=== PATIENT | female | born 1990 | race Caucasian/White ===

== ENCOUNTER 2018-05-23 21:03 | Emergency (ER) | payer OTHER ==
--- NOTE | 2018-05-23 21:31 | ED ---
Lower Extremity - HPI Summary HPI Summary: Patient is a 27-year-old female who presents emergency department for right foot injury that occurred just prior to arrival. Patient states she is in the process of moving and went to flip a couch over when it suddenly fell and landed onto her right foot. No other injuries were sustained. Walking and touching affected area makes symptoms worse. Rest makes symptoms better. Symptoms are mild in severity. - History of Current Complaint Chief Complaint: EDExtremityLower Stated Complaint: RT FOOT INJURY Time Seen by Provider: 05/23/18 21:31 Hx Obtained From: Patient Pain Intensity: 6 - Allergies/Home Medications Allergies/Adverse Reactions: Allergies Allergy/AdvReac Type Severity Reaction Status Date / Time amoxicillin Allergy Hives Verified 05/23/18 21:17 Penicillins Allergy Hives Verified 05/23/18 21:17 Sulfa (Sulfonamide Allergy Hives Verified 05/23/18 21:17 Antibiotics) PMH/Surg Hx/FS Hx/Imm Hx Previously Healthy: Yes Endocrine/Hematology History: Denies: Hx Diabetes Cardiovascular History: Denies: Hx Hypertension, Hx Pacemaker/ICD Respiratory History: Reports: Hx Sleep Apnea GI History: Reports: Hx Gastroesophageal Reflux Disease, Hx Ulcer History: Denies: Hx Renal Disease Musculoskeletal History: Reports: Hx Back Problems, Hx Orthopedic Injury, Other Musculoskeletal History - EDS, connective tissue disorder, hypermobility; Bilateral Shoulder Pain Sensory History: Reports: Hx Contacts or Glasses Denies: Hx Hearing Aid Opthamlomology History: Reports: Hx Contacts or Glasses Neurological History: Reports: Hx Headaches, Other Neuro Impairments/Disorders - dizziness Psychiatric History: Denies: Hx Panic Disorder - Surgical History Surgery Procedure, Year, and Place: REMOVED CYST ON NECK 7TH GRADE. LAPROSCOPIC LEFT HIP SURGERY 2014 Infectious Disease History: No Infectious Disease History: Denies: Traveled Outside the [place] in Last 30 Days - Social History Occupation: Unemployed Lives: With Family Alcohol Use: Occasionally Substance Use Type: Reports: None Smoking Status (MU): Never Smoked Tobacco Review of Systems Positive: Other - Right foot pain and swelling Positive: Other - Abrasion to right foot Negative: Weakness, Paresthesia, Numbness All Other Systems Reviewed And Are Negative: Yes Physical Exam Triage Information Reviewed: Yes Vital Signs On Initial Exam: Initial Vitals Temp Pulse Resp BP Pulse Ox 98.1 F 78 18 126/69 98 05/23/18 21:14 05/23/18 21:14 05/23/18 21:14 05/23/18 21:14 05/23/18 21:14 Vital Signs Reviewed: Yes Appearance: Positive: Well-Appearing - Pt. sitting up in bed in NAD. Skin: Positive: Warm, Dry Head/Face: Positive: Normal Head/Face Inspection Neck: Positive: Supple Musculoskeletal: Positive: Other - Hematoma noted to the mid dorsum of right foot. Very small superficial overlying abrasion. Neurological: Positive: Normal, CN Intact II-III Psychiatric: Positive: Affect/Mood Appropriate Diagnostics - Vital Signs Vital Signs Temp Pulse Resp BP Pulse Ox 05/23/18 21:14 98.1 F 78 18 126/69 98 - Laboratory Lab Statement: Any lab studies that have been ordered have been reviewed, and results considered in the medical decision making process. Lower Extremity Course/Dx - Course Course Of Treatment: Pt. presenting for an isolated right foot injury. Xray of right foot is negative for fracture or dislocation, reading per radiology. Results discussed. Jerod wrap placed for comfort. Advised to ice and elevate. Tylenol or Motrin for pain as directed. Will f.u with PCP. - Diagnoses Differential Diagnosis/HQI/PQRI: Positive: Contusion, Fracture (Closed), Sprain Provider Diagnoses: Foot contusion Discharge - Sign-Out/Discharge Documenting (check all that apply): Discharge/Admit/Transfer - Discharge Plan Condition: Good Disposition: HOME Patient Education Materials: Foot Contusion (ED) Referrals: Kendall Lowery MD [Primary Care Provider] - Additional Instructions: Follow up with PCP if pain and swelling continues Ice and elevate Tylenol or Motrin for pain as directed - Billing Disposition and Condition Condition: GOOD Disposition: Home
--- NOTE | 2018-05-23 21:52 | RAD ---
INDICATION: Right foot pain COMPARISON: None TECHNIQUE: AP, lateral, and oblique views were obtained. FINDINGS: There is no acute fracture or dislocation. There is soft tissue swelling over the dorsum of the midfoot. IMPRESSION: SOFT TISSUE SWELLING. NO ACUTE FRACTURE.
[2018-05-23 22:23] VITALS: BP 101/67
== END 2018-05-23 22:21 | disposition home or self-care (01) ==
LOC: ED 21:03
DX: S90.31XA Contusion of right foot, initial encounter (principal); W20.8XXA Other cause of strike by thrown, projected or falling object, initial encounter; Y93.89 Activity, other specified; Y92.9 Unspecified place or not applicable; Z88.3 Allergy status to other anti-infective agents; Z88.0 Allergy status to penicillin; Z88.2 Allergy status to sulfonamides
CPT/HCPCS: 99282

== ENCOUNTER 2018-11-27 15:14 | Emergency (ER) | payer OTHER ==
[2018-11-27] MEDS ORDERED: oxyCODONE/Acetamin 5/325 MG* TAB PO ONE ×3 (15:36→17:38)
--- NOTE | 2018-11-27 15:46 | ED ---
Back Pain - HPI Summary HPI Summary: This patient is a 28 year old F presenting to [facility] accompanied by her family with a chief complaint of lower back pain that was worse over this afternoon. She states she has been having this pain since August and that over the last week it has been increasing. She did see Dr. Aponte in August and received an MRI that was negative and was told to f/u with her PCP. The patient rates the pain 9/10 in severity. She describes the pain as a cramping sensation in her back that radiates into her ovaries. Patient reports ABD bloating, lower back pain with urination, and chills. Patient denies hematuria, BM issues, fever, and diaphoresis. Pt also c/o nerve pain down her legs that began 3 days ago but states this is being followed up with a different provider. She does have an IUD in place. Hx ruptured cyst and irregular periods. 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 She denies recent steroid use - History of Current Complaint Chief Complaint: EDBackInjuryPain Stated Complaint: BACK PAIN Time Seen by Provider: 11/27/18 15:26 Hx Obtained From: Patient Onset/Duration: Still Present, Worse Since Onset/Duration: Started Hours Ago, Still Present Timing: Constant Back Pain Location: Is Diffuse Severity Initially: Severe Severity Currently: Severe Pain Intensity: 9 Pain Scale Used: 0-10 Numeric Associated Signs And Symptoms: Positive: Other - ABD bloating, lower back pain with urination, and chills. - Allergies/Home Medications Allergies/Adverse Reactions: Allergies Allergy/AdvReac Type Severity Reaction Status Date / Time amoxicillin Allergy Hives Verified 11/27/18 16:15 Penicillins Allergy Hives Verified 11/27/18 16:15 sulfamethoxazole Allergy Hives Verified 11/27/18 16:15 [From Bactrim] trimethoprim [From Bactrim] Allergy Hives Verified 11/27/18 16:15 Home Medications: Home Medications Cholecalciferol (Vitamin D3) [Vitamin D3] 1,000 unit PO DAILY 11/27/18 [History Confirmed 11/27/18] Montelukast Sodium TAB* [Singulair TAB*] 10 mg PO DAILY 11/27/18 [History Confirmed 11/27/18] Triamcinolone NASAL SPRAY* [Nasacort AQ Nasal [place]*] 1 puff NASAL BID 11/27/18 [History Confirmed 11/27/18] PMH/Surg Hx/FS Hx/Imm Hx Endocrine/Hematology History: Denies: Hx Diabetes Cardiovascular History: Denies: Hx Hypertension, Hx Pacemaker/ICD Respiratory History: Reports: Hx Sleep Apnea GI History: Reports: Hx Gastroesophageal Reflux Disease, Hx Ulcer History: Denies: Hx Renal Disease Musculoskeletal History: Reports: Hx Back Problems, Hx Orthopedic Injury, Other Musculoskeletal History - EDS, connective tissue disorder, hypermobility; Bilateral Shoulder Pain Sensory History: Reports: Hx Contacts or Glasses Denies: Hx Hearing Aid Opthamlomology History: Reports: Hx Contacts or Glasses Neurological History: Reports: Hx Headaches, Other Neuro Impairments/Disorders - dizziness Psychiatric History: Denies: Hx Panic Disorder - Surgical History Surgery Procedure, Year, and Place: REMOVED CYST ON NECK 7TH GRADE. LAPROSCOPIC LEFT HIP SURGERY 2014. WISDOM TEETH 2017 Infectious Disease History: No Infectious Disease History: Denies: Traveled Outside the [place] in Last 30 Days - Family History Known Family History: Negative: Respiratory Disease, Seizure Disorder - Social History Alcohol Use: Occasionally Alcohol Amount: 4 drinks per month Substance Use Type: Reports: None Smoking Status (MU): Never Smoked Tobacco Review of Systems Positive: Chills. Negative: Fever, Skin Diaphoresis Negative: Erythema Negative: Sore Throat Negative: Chest Pain Negative: Shortness Of Breath, Cough Positive: Abdominal Pain Negative: dysuria, hematuria Musculoskeletal: Other - lower back pain that is worse with urination Negative: Edema Negative: Rash Neurological: Negative - dizziness Positive: Paresthesia - in LE All Other Systems Reviewed And Are Negative: Yes Physical Exam - Summary Physical Exam Summary: Constitutional: Well-developed, Well-nourished, Alert. (-) Distressed Skin: Warm, Dry HENT: Normocephalic; Atraumatic Eyes: Conjunctiva normal Neck: Musculoskeletal ROM normal neck. (-) JVD, (-) Stridor, (-) Tracheal deviation Cardio: Rhythm regular, rate normal, Heart sounds normal; Intact distal pulses; The pedal pulses are 2+ and symmetric. Radial pulses are 2+ and symmetric. (-) Murmur Pulmonary/Chest wall: Effort normal. (-) Respiratory distress, (-) Wheezes, (-) Rales Abd: she winces when her lower abd is palpated. Musculoskeletal: (-) Edema Lymph: (-) Cervical adenopathy Neuro: Alert, Oriented x3 Psych: Mood and affect Normal Triage Information Reviewed: Yes Vital Signs On Initial Exam: Initial Vitals Temp Pulse Resp BP Pulse Ox 96.0 F 72 16 106/61 100 11/27/18 15:15 11/27/18 15:15 11/27/18 15:15 11/27/18 15:15 11/27/18 15:15 Vital Signs Reviewed: Yes Diagnostics - Vital Signs Vital Signs Temp Pulse Resp BP Pulse Ox 11/27/18 15:15 96.0 F 72 16 106/61 100 - Laboratory Result Diagrams: 11/27/18 16:28 11/27/18 16:28 Lab Statement: Any lab studies that have been ordered have been reviewed, and results considered in the medical decision making process. - Radiology ABD [facility]' Radiology Interpretation Completed By: Radiologist Summary of Radiographic Findings: NONOBSTRUCTIVE BOWEL GAS PATTERN. LARGE AMOUNT OF STOOL THROUGHOUT THE COLON. ED physician has reviewed this radiology report. - Additional Comments Diagnostic Additional Comments: Transvaginal US, reveals, per radiology, 1. AN IUD IS NOTED CENTRALLY WITHIN THE ENDOMETRIAL CAVITY TOWARDS THE FUNDUS.. 2. 1.8 CM HEMORRHAGIC CYST OF THE RIGHT OVARY. 3. NO SONOGRAPHIC FEATURES OF TORSION. PLEASE NOTE THAT PARTIAL OR INTERMITTENT TORSION MAY BE SONOGRAPHICALLY NORMAL. ED physician has reviewed this radiology report. Re-Evaluation - Re-Evaluation First Eval Re-Evaluation Time: 16:44 Change: Worse Comment: The pain has increased with the transvaginal US. She also states the first percocet did not alleviate any pain. Back Pain Course/Dx - Course Assessment/Plan: This patient is a 28 year old F presenting to [facility] accompanied by her family with a chief complaint of lower back pain that was worse over this afternoon. She states she has been having this pain since August and that over the last week it has been increasing. She did see Dr. Aponte in August and received an MRI that was negative and was told to f/u with her PCP. The patient rates the pain 9/10 in severity. She describes the pain as a cramping sensation in her back that radiates into her ovaries. Patient reports ABD bloating, lower back pain with urination, and chills. Patient denies hematuria, BM issues, fever, and diaphoresis. Pt also c/o nerve pain down her legs that began 3 days ago but states this is being followed up with a different provider. She does have an IUD in place. Hx ruptured cyst and irregular periods. 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 She denies recent steroid use. ABD XR reveals, per radiologist, NONOBSTRUCTIVE BOWEL GAS PATTERN. LARGE AMOUNT OF STOOL THROUGHOUT THE COLON. Transvaginal US, reveals, per radiology, 1. AN IUD IS NOTED CENTRALLY WITHIN THE ENDOMETRIAL CAVITY TOWARDS THE FUNDUS.. 2. 1.8 CM HEMORRHAGIC CYST OF THE RIGHT OVARY. 3. NO SONOGRAPHIC FEATURES OF TORSION. PLEASE NOTE THAT PARTIAL OR INTERMITTENT TORSION. MAY BE SONOGRAPHICALLY NORMAL. Bloodwork obtained. In the ED course the patient was given 3 Percocet which alleviated her sx. Patient will be discharged and follow up from [facility]. The patient is agreeable with this plan. - Diagnoses Provider Diagnoses: Constipation, Hemorrhagic ovarian cyst Discharge - Sign-Out/Discharge Documenting (check all that apply): Patient Departure - Discharge Plan Condition: Stable Disposition: HOME Prescriptions: Docusate CAP* [Colace Cap*] 100 mg PO BID #60 cap Patient Education Materials: Ovarian Cyst (ED), Constipation (ED), High Fiber Diet (ED) Referrals: Kendall Lowery MD [Primary Care Provider] - 3 Days Joey Ferrara MD [Medical Doctor] - 1 Day Additional Instructions: RETURN TO THE EMERGENCY DEPARTMENT FOR CHANGING OR WORSENING SYMPTOMS. - Attestation Statements Document Initiated by Scribe: Yes Documenting Scribe: Bhaskar Edgar Provider For Whom Scribe is Documenting (Include Credential): Yrn Soler MD Scribe Attestation: Bhaskar Rudolph , scribed for Yrn Soler MD on 11/27/18 at 1753. Status of Scribe Document: Ready
[2018-11-27 16:38] LABS: ABS Basophils 0.1 10^3/ul (0-0.2); ABS Eosinophils 0.3 10^3/ul (0-0.6); ABS Lymphocytes 2.2 10^3/ul (1.0-4.8); ABS Monocytes 0.5 10^3/ul (0-0.8); ABS Neutrophils 4.1 10^3/ul (1.5-7.7); ABS Nucleated RBC 0 10^3/ul; Eosinophil % 3.9 %; Hematocrit 39 % (35-47); Lymphocyte % 30.5 %; Mean Corpuscular HGB Conc 33 g/dl (31-36); Mean Corpuscular Hemoglobin 31 pg (27-31); Mean Corpuscular Volume 92 fL (80-97); Mean Platelet Volume 9.9 fL (7.4-10.4); Nucleated Red Blood Cells % 0; Platelet Count 157 10^3/ul (150-450); Red Blood Count 4.25 10^6/ul (4.00-5.40); Red Cell Distribution Width 13 % (10.5-15); White Blood Count 7.1 10^3/ul (3.5-10.8)
[2018-11-27 16:55] LABS: ALT 20 U/L (7-52); AST 25 U/L (13-39); Albumin 4.5 g/dL (3.2-5.2); Albumin/Globulin Ratio 1.7 (1-3); Alkaline Phosphatase 45 U/L (34-104); Anion Gap 4 mmol/L (2-11); Blood Urea Nitrogen 23 mg/dL (6-24); C Reactive Protein < 1.00 mg/L (<8.01); CO2 Carbon Dioxide 29 mmol/L (22-32); Calcium 9.1 mg/dL (8.6-10.3); Chloride 104 mmol/L (101-111); EGFR Non-African American 81.9 (>60); Globulin 2.6 g/dL (2-4); Glucose 113 mg/dL (70-100); Potassium 3.9 mmol/L (3.5-5.0); Sodium 137 mmol/L (135-145); Total Protein 7.1 g/dL (6.4-8.9)
[2018-11-27 17:29] LABS: Urine Appearance Cloudy; Urine Bilirubin Negative (Negative); Urine Blood Negative (Negative); Urine Color Straw; Urine Glucose Negative (Negative); Urine Ketones Negative (Negative); Urine Nitrite Negative (Negative); Urine Protein Negative (Negative); Urine Specific Gravity 1.004 (1.010-1.030); Urine Urobilinogen Negative (Negative)
[2018-11-27 18:14] VITALS: BP 95/54
== END 2018-11-27 18:13 | disposition home or self-care (01) ==
LOC: ED 15:14
DX: K59.00 Constipation, unspecified (principal); N83.201 Unspecified ovarian cyst, right side; G47.30 Sleep apnea, unspecified; K21.9 Gastro-esophageal reflux disease without esophagitis; Z88.0 Allergy status to penicillin; Z97.5 Presence of (intrauterine) contraceptive device
CPT/HCPCS: 36415; 74018; 76830; 80053; 81003; 83605; 83690; 85025; 86140; 99283; A9270-GY

== ENCOUNTER 2019-02-15 21:26 | Emergency (ER) | payer OTHER ==
--- OUTSIDE RECORDS SUMMARY | 2019-02-15 21:38 | XMS REPORT | Continuity of Care Document ---
:1990 External Reference #:[id number] Author Name Kendall Lowery M.D. Address [address] [place] [address] [address] [place] [address] Care Team Providers Name Role Phone HCP given Primary Care Physician Unavailable Payers Date Identification Numbers Payment Provider Subscriber Policy Number: [id number] [facility] Mariely Nielson PayID: [id number] [address] [place] [address] Advance Directives Description No Information Available Problems Date Description Provider Status Onset: 08/30/2016 Insomnia Marquita Metz PA Active Onset: 08/30/2016 Hypermobility syndrome Marquita Metz PA Active Onset: 08/30/2016 Allergic rhinitis Marquita Metz PA Active Onset: 11/01/2016 Collagen disease Marquita Metz, PA Active Onset: 11/01/2016 Verruca vulgaris Marquita Metz, PA Active Onset: 01/03/2017 Sleep apnea Marquita Metz, PA Active Onset: 02/07/2017 Recurrent major depressive episodes Marquita Metz PA Active Onset: 07/17/2018 Gastroesophageal reflux disease Marquita Metz, PA Active Family History Date Family Member(s) Observation Comments Father Diabetes, Nos Father Hypertension Father Hypercholesterolemia Father Narcolepsy Children 2 First Brother Crohn's Disease First Brother Ankylosing Spondylitis First Brother hypermobility First Sister hypermobility Second Sister Hypothyroidism Third Sister Scoliosis Paternal Grandmother Diabetes, Nos Paternal Grandmother Dementia Paternal Grandmother Rheumatoid Arthritis Maternal Grandfather Pancreatic Cancer Maternal Grandmother Breast Cancer Maternal Grandmother Alzheimer's Disease Maternal Aunts Breast Cancer Social History Type Date Description Comments Sex Unknown Education Highest Level Completed College Marital Status Lives With Children Lives With Smoke-Free Home is smoke-free Work Status Not Currently Working Tobacco Use Start: Unknown Denies Cigarette Use ETOH Use Occassional Alcohol Recreational Drug Use Denies Drug Use Tobacco Use Start: Unknown Non Smoker Smoking Status Reviewed: 07/19/18 Non Smoker Exercise Type/Frequency Exercises rarely Sun Exposure Uses sunscreen Seat Belt/Car Seat Seat Belt Use - Yes Guns in Home No Smoke Alarms Yes smoke alarm Currently Active Patient is currently sexually active Contraceptive Methods IUD Mirena Age 1st Penrose 17 Years Old Allergies, Adverse Reactions, Alerts Date Description Reaction Status Severity Comments 08/30/2016 Penicillins Active 08/30/2016 Amoxicillin Active 08/30/2016 Bactrim Active Medications Medication Date Status Form Strength Qnty SIG Indications Ordering Provider Fexofenadine 02/05/ Active Tablets 180mg 30tab 1 tab by Silcoff, HCL 2019 s mouth every Kendall, day for M.D. allergies Oxycodone-Aceta 02/05/ Active Tablets 5-325mg 30tab 1 tab up to N83.209 Siltommy minophen 2019 s three times Kendall, daily as M.D. needed for pain Nasacort(OTC)Al 11/13/ Active Bigelow 10.8u Use 2 Sprays karissa Lowery 24HR 2018 nits In Each Kendall, Nostril One M.D. Time A Day Duloxetine HCL 07/17/ Active Caps DR 30mg 30cap 1 cap by F33.9 Silcoff, 2018 Part s mouth every Kendall, day for mood M.D. Gabapentin 07/16/ Active Capsules 100mg 7 Unknown 2017 capsules/beulah ly Meloxicam 07/16/ Active Tablets 1 by mouth Unknown 2018 twice daily Meclizine HCL 02/07/ Active Tablets 25mg 90tab 1 tab by H81.10 Silcoff, 2018 s mouth three Kendall, times a day M.D. as needed dizziness Montelukast 05/11/ Active Tablets 10mg 30tab 1 by mouth J30.9 Silcoff, Sodium 2017 s every day Kendall, for M.D. allergies Pantoprazole 07/20/ Active Tablets DR 40mg 60tab 1 by mouth K21.9 Silcoff, Sodium 2016 s twice a day Kendall, 30 minutes M.D. before eating Centrum Adults / Active Tablets Unknown 0000 Dok 01/03/ Hx Capsules 100mg 60cap Take 1 Unknown 2019 - s Capsule By 12/30/ Mouth Two 2019 Times Daily Azithromycin 08/13/ Hx Tablets 250mg 6tabs 2 tabs day H65.92 Sebastián 2018 - one and 1 Kendall, 08/20/ tab days 2-5 M.D. 2018 Benzonatate 08/13/ Hx Capsules 200mg 14cap 1 cap up to R05 Sebastián, 2018 - s three times Kendall, 09/12/ a day for M.D. 2018 cough, when no longer productive Escitalopram 04/16/ Hx Tablets 20mg 30tab 1 tab by F33.9 Sebastián, Oxalate 2018 - s mouth every Kendall, 05/17/ day M.D. 2018 Cefdinir 10/21/ Hx Capsules 300mg 20cap 1 cap by J01.90 Sebastián 2016 - s mouth twice Kendall, 10/31/ a day M.D. 2016 Guaifenesin ac 10/21/ Hx Syrup 100-10mg/ 200un 5-10 R05 Sebastián, 2017 - 5ML its milliliters Kendall, 11/21/ every 6 M.D. 2017 hours for cough Ventolin HFA 10/09/ Hx Aerosol 108(90Bas 1inha 1-2 puff q4 J20.9 Sebastián, 2016 - e) ler hours for Kendall, 11/20/ mcg/Act breathing M.D. 2017 Prednisone 10/09/ Hx Tablets 20mg 5tabs 1 per J20.9 Sebastián, 2016 - morning x 5 Kendall, 10/19/ days for M.D. 2017 bronchitis Azithromycin 08/30/ Hx Tablets 250mg 6tabs 2 tabs by J20.9 Sebastián, 2017 - mouth daily Kendall, 09/04/ x1 day then M.D. 2017 1 tab by mouth daily x4 days Cetirizine HCL 05/31/ Hx Tablets 10mg 30tab take 1 Sebastián 2016 - s tablet by Kendall, 02/05/ mouth every M.D. 2019 day for allergy Freestyle Lite 05/11/ Hx Device 1unit test three R73.01 Hektor, Blood Glucose 2017 - s times a day GRAHAM Juárez Monitoring 02/04/ as directed System 2019 Freestyle Lite 05/11/ Hx Strips 100un test 3 times R73.01 Sebastián, Test 2017 - its a day as Kendall, 02/04/ directed M.DZohaib 2018 Freestyle 05/11/ Hx Misc 100un test three R73.01 Debby Lowery 2017 - its time daily Kendall, as directed M.DZohaib 2018 Citalopram 05/11/ Hx Tablets 40mg 90tab 1 tab by F33.9 Lashay Hydrobromide 2017 - s mouth every GRAHAM Juárez 2017 Tramadol HCL 04/19/ Hx Tablets 50mg [place], 2017 - Robert, 08/29/ 2016 Hydrocodone-Jerod 03/14/ Hx Tablets 5-325mg 90tab 1 tablet by M25.512 debora Metz 2016 - s mouth up to GRAHAM Juárez 05/08/ every 8 2016 hours as needed for pain Trazodone HCL 03/07/ Hx Tablets 100mg 1 tabs by Lashay 2017 - mouth every GRAHAM Juárez 05/08/ night at 2016 bedtime as needed for insomnia Hydrocodone-Ibu 03/07/ Hx Tablets 5-200mg 90tab 1 tab po M25.512 rené Metz 2016 - s every GRAHAM Juárez 03/14/ hours as 2016 needed for pain Escitalopram 03/07/ Hx Tablets 20mg 30tab 1 tab by F33.9 Lashay Oxalate 2016 - s mouth every GRAHAM Juárez day 2016 Escitalopram 02/07/ Hx Tablets 10mg 30tab 1 by mouth F33.9 Lashay Oxalate 2016 - s every day GRAHAM Juárez 2016 Cefdinir 02/07/ Hx Capsules 300mg 20cap 1 cap by J01.90 Lashay 2017 - s mouth twice GRAHAM Juárez 03/06/ a day x10 2016 days Amitriptyline 01/17/ Hx Tablets 25mg 30tab 1 tab po at G47.00 ARTHUR Metz 2016 - s bedtime for GRAHAM Juárez 02/06/ sleep 2016 Trazodone HCL 10/26/ Hx Tablets 100mg 30tab 1 tab by G47.00 Lashay 2015 - s mouth every GRAHAM Juárez 10/28/ night at 2015 bedtime as needed Trazodone HCL 08/30/ Hx Tablets 50mg 30tab take 1 G47.00 Lashay 2015 tablet by GRAHAM Juárez 10/26/ mouth daily 2015 at bedtime for trouble sleeping Nasacort 08/30/ Hx Aerosol 55mcg/Act 16.90 2 sprays J30.9 Silcoff, Allergy 24HR 2016 - 0ml each nostril Kendall 02/04/ daily M.D. 2018 Zyrtec Allergy 08/29/ Hx Capsules 10mg 30cap 1 tab a day Lashay 2015 - for allergy GRAHAM Juárez 2016 Ibuprofen 08/29/ Hx Tablets 200mg 90tab taking 2-3 Lashay 2015 tablets by GRAHAM Juárez 02/07/ mouth tid 2017 prn headache/flora nt pain Trazodone HCL / Hx Tablets 100mg 30tab 1 tabs by Lashay, - s mouth every GRAHAM Juárez 03/07/ night at 2016 bedtime for sleep Calcium 500 + D / Hx Tablets 500-125mg 1 by mouth Unknown 0000 - -Unit every day 2018 Vitamin D3 High / Hx Capsules 1000Unit 2-3 by mouth Unknown Potency 0000 - every day 2018 Immunizations CPT Code Status Date Vaccine Lot # [id number] Given 08/13/2018 Influenza Virus Vaccine, Quadrivalent, Split, [id number] Preservative Free Vital Signs Date Vital Result Comment 02/05/2019 11:14am BP Systolic 102 mmHg BP Diastolic 66 mmHg Height 65 inches 5'5" Weight 153.00 lb BMI (Body Mass Index) 25.5 kg/m2 10/31/2018 1:59pm BP Systolic 106 mmHg BP Diastolic 62 mmHg BP Systolic Recheck 104 mmHg BP Diastolic Recheck 76 mmHg Body Temperature 98.2 F Weight 154.00 lb 08/13/2018 3:28pm BP Systolic 106 mmHg BP Diastolic 70 mmHg Body Temperature 98.3 F Height 65 inches 5'5" Weight 154.50 lb BMI (Body Mass Index) 25.7 kg/m2 07/17/2018 4:24pm BP Systolic 114 mmHg BP Diastolic 68 mmHg Weight 158.50 lb 02/15/2018 2:42pm BP Systolic 116 mmHg BP Diastolic 72 mmHg Weight 148.50 lb 02/07/2018 9:05am BP Systolic 110 mmHg BP Diastolic 70 mmHg Height 65.50 inches 5'5.50" Weight 146.00 lb BMI (Body Mass Index) 23.9 kg/m2 10/21/2017 10:00am BP Systolic 124 mmHg BP Diastolic 80 mmHg Body Temperature 98.9 F 10/09/2017 11:46am BP Systolic 114 mmHg BP Diastolic 68 mmHg Heart Rate 68 /min O2 % BldC Oximetry 98 % Body Temperature 98.2 F Weight 145.00 lb w/shoes and sweatshirt 08/30/2017 4:43pm BP Systolic 126 mmHg BP Diastolic 70 mmHg Body Temperature 98.7 F Weight 143.00 lb 05/11/2017 4:16pm BP Systolic 110 mmHg BP Diastolic 72 mmHg Body Temperature 98.5 F 05/09/2017 3:24pm BP Systolic 104 mmHg BP Diastolic 60 mmHg Body Temperature 98.3 F Height 65.5 inches 5'5.50" Weight 137.00 lb BMI (Body Mass Index) 22.4 kg/m2 03/07/2017 4:31pm BP Systolic 98 mmHg BP Diastolic 62 mmHg Weight 140.00 lb 02/07/2017 10:30am BP Systolic 106 mmHg BP Diastolic 68 mmHg Body Temperature 98.0 F 01/17/2017 4:44pm BP Systolic 106 mmHg BP Diastolic 68 mmHg Weight 144.00 lb 11/01/2016 11:17am BP Systolic 110 mmHg BP Diastolic 70 mmHg Weight 141.00 lb with shoes 10/26/2016 2:55pm BP Systolic 98 mmHg BP Diastolic 60 mmHg Weight 142.00 lb 09/20/2016 3:40pm BP Systolic 104 mmHg BP Diastolic 60 mmHg Height 64.50 inches 5'4.50" Weight 142.00 lb BMI (Body Mass Index) 24.0 kg/m2 08/30/2016 5:04pm BP Systolic 110 mmHg BP Diastolic 70 mmHg Height 64.50 inches 5'4.50" Weight 139.00 lb BMI (Body Mass Index) 23.5 kg/m2 Results Test Date Facility Test Result H/L Range Note Urine Drug 12/04/2018 [facility] Amphetamine Ur None Detected None Detect [facility] ED & [phone] Screen Pain Clinic Barbiturates Urine Screen None Detected None Detect Benzodiazepine Urine Screen None Detected None Detect Urine Cannabinoids Screen None Detected None Detect Urine Cocaine Screen None Detected None Detect Urine Opiates Screen None Detected None Detect Urine Phencyclidine Screen None Detected None Detect 1 CBC Auto Diff 11/27/2018 [facility] White Blood Count 7.1 10^3/uL N 3.5-10.8 [phone] Red Blood Count 4.25 10^6/uL N 4.00-5.40 Hemoglobin 13.0 g/dL N 12.0-16.0 Hematocrit 39 % N 35-47 Mean Corpuscular Volume 92 fL N 80-97 Mean Corpuscular Hemoglobin 31 pg N 27-31 Mean Corpuscular HGB Conc 33 g/dL N 31-36 Red Cell Distribution Width 13 % N 10.5-15 Platelet Count 157 10^3/uL N 150-450 Mean Platelet Volume 9.9 fL N 7.4-10.4 Abs Neutrophils 4.1 10^3/uL N 1.5-7.7 Abs Lymphocytes 2.2 10^3/uL N 1.0-4.8 Abs Monocytes 0.5 10^3/uL N 0-0.8 Abs Eosinophils 0.3 10^3/uL N 0-0.6 Abs Basophils 0.1 10^3/uL N 0-0.2 Abs Nucleated RBC 0 10^3/uL Granulocyte % 58.0 % Lymphocyte % 30.5 % Monocyte % 6.9 % Eosinophil % 3.9 % Basophil % 0.7 % Nucleated Red Blood Cells % 0 Laboratory test finding 11/27/2018 [facility] Lactic Acid 1.2 mmol/L N 0.5-2.0 2 [phone] Comp Metabolic Panel 11/27/2018 [facility] Sodium 137 mmol/L N 135- 145 [phone] Potassium 3.9 mmol/L N 3.5-5.0 Chloride 104 mmol/L N 101-111 Co2 Carbon Dioxide 29 mmol/L N 22-32 Anion Gap 4 mmol/L N 2-11 Glucose 113 mg/dL High 70-100 Blood Urea Nitrogen 23 mg/dL N 6-24 Creatinine 0.82 mg/dL N 0.51-0.95 BUN/Creatinine Ratio 28.0 High 8-20 Calcium 9.1 mg/dL N 8.6-10.3 Total Protein 7.1 g/dL N 6.4-8.9 Albumin 4.5 g/dL N 3.2-5.2 Globulin 2.6 g/dL N 2-4 Albumin/Globulin Ratio 1.7 N 1-3 Total Bilirubin 0.30 mg/dL N 0.2-1.0 Alkaline Phosphatase 45 U/L N 34-104 Alt 20 U/L N 7-52 Ast 25 U/L N 13-39 Egfr Non- 81.9 >60 Egfr 99.0 >60 3 Laboratory test finding 11/27/2018 [facility] Lipase 29 U/L N 11.0- 82.0 [phone] C Reactive Protein < 1.00 mg/L N <8.01 Urinalysis Profile 11/27/2018 [facility] Urine Color Straw [phone] Urine Appearance Cloudy Urine Specific Howe 1.004 Low 1.010-1.030 Urine pH 7.0 N 5-9 Urine Urobilinogen Negative Negative Urine Ketones Negative Negative Urine Protein Negative Negative Urine Leukocytes Negative Negative Urine Blood Negative Negative Urine Nitrite Negative Negative Urine Bilirubin Negative Negative Urine Glucose Negative Negative Laboratory test 10/31/2018 [facility] Culture Throat SEE RESULT 4 finding [phone] BELOW Laboratory test 10/31/2018 [facility] Glucose 102 finding Quantitative Laboratory test 10/31/2018 [facility] Culture Throat negative finding Rapid Screen Laboratory test 07/17/2018 [facility] Cytology SEE RESULT 5, 6 finding [phone] BELOW Laboratory test 02/07/2018 [facility] House Hemoglobin A1c 5.1 finding Laboratory test 02/07/2018 [facility] House Glucose 96 7 finding Laboratory test 05/11/2017 In House Hemoglobin A1c 5.1 finding Laboratory test 05/11/2017 In House Culture Throat negative finding Rapid Screen Laboratory test 01/17/2017 In House Test negative finding Urine Laboratory test 12/16/2016 [facility] Erythrocyte Sed 6 mm/Hr N 0-14 finding [phone] Rate Magnesium 2.1 mg/dL N 1.9-2.7 Creatine Kinase(CK) 166 U/L N 10-223 C Reactive Protein < 1.00 mg/L N < 5.00 8 Folic Acid (Folate) > 20.00 ng/mL N >3.99 Vitamin B12 587 pg/mL N 180-914 9 Aso (Antistreptolysin O) Titer 200 IU/mL IU/mL Abnormal <200 Iu/mL 10 Angiotensin Converting Enzyme 34 U/L N 8 - 53 11 Cardiolipin Igg/Igm 12/16/2016 [facility] Phospholipid Ab IgM, S < 4.0 MPL N 12 [phone] Phospholipid Ab IgG 4.2 GPL N 13 Cytoplasmic Neutrophilic AB 12/16/2016 [facility] C-Anca Negative N Negative [phone] P-Anca Negative N Negative 14 Celiac Panel 12/16/2016 [facility] Tissue Transglutaminase IgA <1.2 U/ mL N 15 [phone] Ab Immunoglobulin A 82 mg/dL N 61 - 356 Celiac Interpretation See Comment N 16 Hla B27 12/16/2016 [facility] Hla B27 Negative N 17 [phone] Hla B27 Interp See Comment N 18 Laboratory test 12/16/2016 [facility] Vitamin B1 144 nmol/L N 70-180 19 finding [phone] (Whole Blood) Lyme Western Blot 12/16/2016 [facility] Lyme Disease Negative N Negative [phone] IgG Ab WB Lyme Disease IgG Bands Present p41, kDa N Lyme Disease IgM Ab WB Negative N Negative Lyme Disease IgM Bands Present No bands detecte <SEE NOTE> kDa N 20 Lyme Disease Interpretation See Comment N 21 Laboratory test 12/16/2016 [facility] Ach Receptor 0.00 nmol/L N <= 0.02 22 finding [phone] Binding AB Ceruloplasmin 20 mg/dL N 18-53 23 Nuclear Ab (Rosey) by Ifa, IgG See Comment N 24 Laboratory test 10/27/2016 [facility] Anti Double <12.3 IU/mL N 25 finding [phone] Stranded Dna AB Sm (Sotelo) IgG Antibody <0.2 U N 26 Ribosomal Antibody <0.2 U N 27 U1 COATER [employer] PAPER IgG Autoabs 3.1 U Abnormal 28 Laboratory test 10/27/2016 [facility] Complement C3 99 mg/dL N 75 - 175 29 finding [phone] Complement C4 13 mg/dL Abnormal 14 - 40 30 Complement Total CH50 51 U/mL N 30 - 75 31 Immunoglobulins 10/27/2016 [facility] Immunoglobulin G 1330 N 767 - 32 Serum Quant [phone] mg/dL 1590 Immunoglobulin M 121 mg/dL N 37 - 286 Immunoglobulin A 87 mg/dL N 61 - 356 Ssa/SSB Abs Igg 10/27/2016 [facility] SS-A/Ro Antibody <0.2 U N 33 [phone] SS-B/La Antibody <0.2 U N 34 Comp Metabolic Panel 09/20/2016 [facility] Sodium 138 mmol/L N 133- 145 [phone] Potassium 3.9 mmol/L N 3.5-5.0 Chloride 102 mmol/L N 101-111 Co2 Carbon Dioxide 29 mmol/L N 22-32 Anion Gap 7 mmol/L N 2-11 Glucose 97 mg/dL N 70-100 Blood Urea Nitrogen 16 mg/dL N 6-24 Creatinine 0.80 mg/dL N 0.51-0.95 BUN/Creatinine Ratio 20.0 N 8-20 Calcium 9.4 mg/dL N 8.6-10.3 Total Protein 7.2 g/dL N 6.4-8.9 Albumin 4.5 g/dL N 3.2-5.2 Globulin 2.7 g/dL N 2-4 Albumin/Globulin Ratio 1.7 N 1-3 Total Bilirubin 0.40 mg/dL N 0.2-1.0 Alkaline Phosphatase 43 U/L N 34-104 Alt 11 U/L N 7-52 Ast 15 U/L N 13-39 Egfr Non- 85.4 N >60 Egfr 109.8 N >60 35 Laboratory test 09/20/2016 [facility] C Reactive < 1.00 mg/L N < 5.00 36 finding [phone] Protein Vitamin D Total 25(Oh) 26.7 ng/mL Low 30-50 Lyme Western Blot 09/20/2016 [facility] Lyme Disease IgG Negative N Negative [phone] Ab WB Lyme Disease IgG Bands Present p41, kDa N Lyme Disease IgM Ab WB Negative N Negative Lyme Disease IgM Bands Present p41, kDa N Lyme Disease Interpretation See Comment N 37 Laboratory test 09/20/2016 [facility] Erythrocyte Sed Rate 7 mm/Hr N 0-14 finding [phone] Rheumatoid Factor <15 IU/mL N <15 38 Cyclic Citrullinated Pep Igg <15.6 U N 39 Anti Nuclear Antibody 1.3 U Abnormal 40 Lyme Disease Serology Equivocal N Negative 41 CBC Auto Diff 09/20/2016 [facility] White Blood Count 7.0 10^3/uL N 3.5-10.8 [phone] Red Blood Count 4.45 10^6/uL N 4.0-5.4 Hemoglobin 13.3 g/dL N 12.0-16.0 Hematocrit 40 % N 35-47 Mean Corpuscular Volume 91 fL N 80-97 Mean Corpuscular Hemoglobin 30 pg N 27-31 Mean Corpuscular HGB Conc 33 g/dL N 31-36 Red Cell Distribution Width 14 % N 10.5-15 Platelet Count 179 10^3/uL N 150-450 Mean Platelet Volume 11 um3 High 7.4-10.4 Abs Neutrophils 4.5 10^3/uL N 1.5-7.7 Abs Lymphocytes 1.9 10^3/uL N 1.0-4.8 Abs Monocytes 0.4 10^3/uL N 0-0.8 Abs Eosinophils 0.1 10^3/uL N 0-0.6 Abs Basophils 0 10^3/uL N 0-0.2 Abs Nucleated RBC 0 10^3/uL N Granulocyte % 64.4 % N 38-83 Lymphocyte % 27.3 % N 25-47 Monocyte % 6.2 % N 1-9 Eosinophil % 1.7 % N 0-6 Basophil % 0.4 % N 0-2 Nucleated Red Blood Cells % 0 N 1 The urine specimen was tested at the listed cutoffs: Drug class test level (ng/mL) Amphetamines 500 Barbiturates 200 Benzodiazepine metabolites 200 Cocaine metabolites 150 Cannabinoids 50 Opiates 300 Pcp 25 Specimen was received without chain of custody. Results should be used for medical purposes only. 2 [facility] Severe Sepsis and Septic Shock Management Bundle Measure requires all lactic acids initially measuring >2.0 mmol/L be repeated. 3 Because ethnic data is not always readily available, this report includes an eGFR for both -Americans and non- Americans. The National Kidney Disease Education Program (NKDEP) does not endorse the use of the MDRD equation for patients that are not between the ages of 18 and 70, are , have extremes of body size, muscle mass, or nutritional status, or are non- or non-. According to the National Kidney Foundation, irrespective of diagnosis, the stage of the disease is based on the level of kidney function: Stage Description GFR(mL/min/1.73 m(2)) 1 Kidney damage with normal or decreased GFR 90 2 Kidney damage with mild decrease in GFR 60-89 3 Moderate decrease in GFR 30-59 4 Severe decrease in GFR 15-29 5 Kidney failure <15 (or dialysis) 4 SEE RESULT BELOW Name: MARIELY NIELSON : [address]: Marquita CHAMPAGNE Acct: [id number] Unit: [id number] AGE: 28 Location: [facility] Re10/31/18 SEX: F Status: REG REF SPEC: [id number] TOM: 10/31/[address] [facility] [address]: Marquita CHAMPAGNE REQ: [id number] RECD: 10/31/18 STATUS: COMP _ SOURCE: THROAT SPDESC: ORDERED: Throat Culture COMMENTS: [id number] Procedure Result Reported Site Throat Culture Final 11/02/18- 1008 ML Organism 1 NORMAL GERALD Quantity 2+ Throat cultures are clinically indicated to detect the presence of group A strep, arcanobacterium and yeast. In certain cases, predominating organisms will be reported. * [facility] - Main Lab . END OF REPORT DEPARTMENT OF PATHOLOGY, [address] [place] [address] Cornelius Dumas M.D. Director [facility] # [id number] 6 SEE RESULT BELOW Name: MARIELY NIELSON : [address]: Marquita CHAMPAGNE Acct: [id number] Unit: [id number] AGE: 27 Location: [facility] Re07/17/18 SEX: F Status: REG REF SPEC: [id number] TOM: 07/17/18-17[address] [facility] [address]: Marquita Metz [facility] REQ: [id number] RECD: 07/18/186 STATUS: SOUT _ ORDERED: TP IMAGE ANALYS COMMENTS: [id number] Negative for Intraepithelial lesion or Malignancy A. Ectocervical/Endocervical Specimen Adequacy: Satisfactory of evaluation Transformation zone component not identified Patient Information: HPV: Thin Layer Pap Test w/reflex to high risk HPV RNA testing when ASCUS Actual Specimen Date: 07/17/18 LMP If Unknown: 7 years Spec Date if unknown: 2014 ?: N Post Menopausal?: N Hysterectomy?: N Previous Abnormal Pap Smears?:N Signed by and Reported on: ANGUS Romo(ASCP) 0931 This Pap test was evaluated with the assistance of the [employer] Test Imaging System. Due to cytologic findings at the store team member microscope, comprehensive manual rescreening by a Deck Cadet may be required. The Pap Smear is a screening test designed to aid in the detection of premalignant and malignant conditions of the uterine cervix. It is not a diagnostic procedure and should not be used as the sole means of detecting cervical cancer. Both false- positive and false- negative reports do occur. Depending on your risk status, a Pap smear should be obtained and evaluated every 1-3 years. END OF REPORT DEPARTMENT OF PATHOLOGY, [address] [place] [address] Cornelius Dumas M.D. Director [facility] # [id number] 7 KH aware 8 Acute inflammation: >10.00 9 Normal Range 180 to 914 Indeterminate Range 145 to 180 Deficient Range <145 10 Normal values may vary with age, season and geographic area. Titers above upper limits may be indicative of infection, however only a two dilution rise in titer is required to be considered significant. ASO titer will usually rise above upper limits within one week of exposure, increase to peak levels at 3-5 weeks and return to baseline level at 6-12 twelve months. 11 Test Performed by: [facility] [place] [address] Continuous Linter Drier Operator: Aram Miller II, M.D., Ph.D. 12 REFERENCE VALUE <10.0 (Negative) 13 REFERENCE VALUE <10.0 (Negative) Test Performed by: [facility] [place] [address] Continuous Linter Drier Operator: Aram Miller II, M.D., Ph.D. 14 Negative for cANCA and pANCA patterns by immunofluorescence. ADDITIONAL INFORMATION This test was developed and its performance characteristics determined by [facility] in a manner consistent with CLIA requirements. This test has not been cleared or approved by the U.S. Food and Drug Administration. Test Performed by: [place] [address] Continuous Linter Drier Operator: Aram Miller II, M.D., Ph.D. 15 REFERENCE VALUE <4.0 (Negative) Test Performed by: [place] [address] Continuous Linter Drier Operator: Aram Miller II, M.D., Ph.D. 16 Negative serology. Celiac disease unlikely. However, approximately 10% of patients with celiac disease are seronegative. Also, patients who are already adhering to a gluten-free diet may be seronegative. If celiac disease is highly clinically suspected, consider HLA-DQ typing. Test Performed by: [facility] [place] [address] Continuous Linter Drier Operator: Aram Miller II, M.D., Ph.D. 17 REFERENCE VALUE Not Applicable 18 RESULT: HLA-B27 antigen was not detected. ADDITIONAL INFORMATION Method: Flow Cytometry Performing Laboratory CLIA# [id number] Test Performed by: [facility] [place] [address] Continuous Linter Drier Operator: Aram Miller II, M.D., Ph.D. 19 ADDITIONAL INFORMATION This test was developed and its performance characteristics determined by [facility] in a manner consistent with CLIA requirements. This test has not been cleared or approved by the U.S. Food and Drug Administration. Test Performed by: [facility] [place] [address] Continuous Linter Drier Operator: Aram Miller II, M.D., Ph.D. 20 No bands detected 21 Specific serologic response to B. burgdorferi infection is not detected, but cannot rule out early infection during which low or undetectable antibody levels to B. burgdorferi may be present. If clinically indicated, a new serum specimen should be submitted in 7-14 days. ADDITIONAL INFORMATION CDC criteria require >=5 bands for IgG or >=2 bands for IgM for the Immunoblot to be considered positive. Bands (e.g.,p41) may be detected in patients without Lyme disease, and patterns not meeting the CDC criteria should be interpreted with caution. Immunoblot should be ordered only on specimens that are positive or equivocal by a FDA-licensed Lyme disease antibody screening test (e.g., EIA). Test Performed by: [facility] [place] [address] Continuous Linter Drier Operator: Aram Miller II, M.D., Ph.D. 22 ADDITIONAL INFORMATION This test was developed and its performance characteristics determined by [facility] in a manner consistent with CLIA requirements. This test has not been cleared or approved by the U.S. Food and Drug Administration. Test Performed by: [facility] [place] [address] Continuous Linter Drier Operator: Aram Miller II, M.D., Ph.D. 23 Adults: Males: 18-36 mg/dL Females: 18-53 mg/dL Pediatrics: Males (mg/dL) Females (mg/dL) 0-30 Days 8-25 3-28 31 Days-11 Month 15-48 15-43 1-3 Years 25-56 29-54 4-6 Years 29-56 26-54 7-9 Years 25-52 23-48 10-12 Years 21-51 21-48 13-15 Years 20-50 21-46 16-18 Years 20-45 22-50 The pediatric ranges are derived from the following criteria: Betty SEGURA, Berkley PECK, Tiffanie Delcid et al Pediatric reference ranges for Msqs-6-Nfomxombljbiy and ceruloplasmin. Clin. Chem 1997; 43:S1999 Pediatric Reference Ranges, 2nd., [place] Bettyet al. editors. [employer], [place], [place] 1997. Test Performed at: [facility], [address] [place] [address] B Stephane SAMANIEGO, FCAP Test Performed by: [facility] [address] [place] [address] 24 Antinuclear Ab, HEp-2 Substrate, S <1:80 (Negative) Reference Value: <1:80 (Negative) Test Performed by: [place] [address] Continuous Linter Drier Operator: Aram Miller II, M.D., Ph.D. 25 REFERENCE VALUE <30.0 (Negative) Test Performed by: [place] [address] Continuous Linter Drier Operator: Aram Miller II, M.D., Ph.D. 26 REFERENCE VALUE <1.0 (Negative) Test Performed by: [place] [address] Continuous Linter Drier Operator: Aram Miller II, M.D., Ph.D. 27 REFERENCE VALUE <1.0 (Negative) Test Performed by: [place] [address] Continuous Linter Drier Operator: Aram Miller II, M.D., Ph.D. 28 Interpretation: Positive (>=1.0) REFERENCE VALUE <1.0 (Negative) Test Performed by: [place] [address] Continuous Linter Drier Operator: Aram Miller II, M.D., Ph.D. 29 Test Performed by: [place] [address] Continuous Linter Drier Operator: Aram Miller II, M.D., Ph.D. 30 Test Performed by: [place] [address] Continuous Linter Drier Operator: Aram Miller II, M.D., Ph.D. 31 Test Performed by: [place] [address] Continuous Linter Drier Operator: Aram Miller II, M.D., Ph.D. 32 Test Performed by: [place] [address] Continuous Linter Drier Operator: Aram Miller II, M.D., Ph.D. 33 REFERENCE VALUE <1.0 (Negative) 34 REFERENCE VALUE <1.0 (Negative) Test Performed by: [place] [address] Continuous Linter Drier Operator: Aram Miller II, M.D., Ph.D. 35 Because ethnic data is not always readily available, this report includes an eGFR for both -Americans and non- Americans. The National Kidney Disease Education Program (NKDEP) does not endorse the use of the MDRD equation for patients that are not between the ages of 18 and 70, are , have extremes of body size, muscle mass, or nutritional status, or are non- or non-. According to the National Kidney Foundation, irrespective of diagnosis, the stage of the disease is based on the level of kidney function: Stage Description GFR(mL/min/1.73 m(2)) 1 Kidney damage with normal or decreased GFR 90 2 Kidney damage with mild decrease in GFR 60-89 3 Moderate decrease in GFR 30-59 4 Severe decrease in GFR 15-29 5 Kidney failure <15 (or dialysis) 36 Acute inflammation: >10.00 37 Specific serologic response to B. burgdorferi infection is not detected, but cannot rule out early infection during which low or undetectable antibody levels to B. burgdorferi may be present. If clinically indicated, a new serum specimen should be submitted in 7-14 days. ADDITIONAL INFORMATION CDC criteria require >=5 bands for IgG or >=2 bands for IgM for the Immunoblot to be considered positive. Bands (e.g.,p41) may be detected in patients without Lyme disease, and patterns not meeting the CDC criteria should be interpreted with caution. Immunoblot should be ordered only on specimens that are positive or equivocal by a FDA-licensed Lyme disease antibody screening test (e.g., EIA). Test Performed by: [place] [address] Continuous Linter Drier Operator: Aram Miller II, M.D., Ph.D. 38 Test Performed by: [place] [address] Continuous Linter Drier Operator: Aram Miller II, M.D., Ph.D. 39 REFERENCE VALUE <20.0 (Negative) Test Performed by: [place] [address] Continuous Linter Drier Operator: Aram Miller II, M.D., Ph.D. 40 Interpretation: Weak Positive (1.1-2.9) REFERENCE VALUE <=1.0 (Negative) Test Performed by: [place] [address] Continuous Linter Drier Operator: Aram Miller II, M.D., Ph.D. 41 Not diagnostic. Supplemental testing ordered by reflex. Test Performed by: [address] [address] Continuous Linter Drier Operator: Aram Miller II, M.D., Ph.D. Procedures Date Code Description Status 10/26/2016 02320 Destruction Of Skin Lesions Up To 14 Flat Warts/Molluscum Completed Contag 09/20/2016 58250 Destruction Of Skin Lesions Up To 14 Flat Warts/Molluscum Completed Contag Encounters Type Date Location Provider Dx Diagnosis Office Visit 02/05/2019 Main Office Marquita Metz PA N83.209 Unspecified ovarian 11:05a cyst, unspecified side K59.00 Constipation, unspecified M35.7 Hypermobility syndrome F33.9 Major depressive disorder, recurrent, unspecified Office Visit 10/31/2018 1:40p Main Office Marquita Metz J02.9 Acute pharyngitis, PA unspecified R53.83 Other fatigue M35.7 Hypermobility syndrome Z13.1 Encounter for screening for diabetes mellitus Office Visit 08/13/2018 3:00p Main Office Lula Ray J06.9 Acute upper P.A. respiratory infection, unspecified H65.92 Unspecified nonsuppurative otitis media, left ear R05 Cough Z23 Encounter for immunization Office Visit 07/17/2018 4:10p Main Office Marquita Metz PA Z12.4 Encounter for screening for malignant neoplasm of cervix M35.7 Hypermobility syndrome R73.01 Impaired fasting glucose F33.9 Major depressive disorder, recurrent, unspecified R53.83 Other fatigue R53.1 Weakness K21.9 Gastro-esophageal reflux disease without esophagitis Office Visit 02/15/2018 2:35p Main Office Marquita Metz PA R73.01 Impaired fasting glucose M35.9 Systemic involvement of connective tissue, unspecified M35.7 Hypermobility syndrome Office Visit 02/07/2018 9:00a Main Office Marquita Metz PA R73.01 Impaired fasting glucose N83.202 Unspecified ovarian cyst, left side H81.10 Benign paroxysmal vertigo, unspecified ear K21.9 Gastro-esophageal reflux disease without esophagitis M35.7 Hypermobility syndrome M35.9 Systemic involvement of connective tissue, unspecified Office Visit 10/21/2017 9:30a Main Office Lula Ray, J01.90 Acute sinusitis, P.A. unspecified K21.9 Gastro-esophageal reflux disease without esophagitis R05 Cough Office Visit 10/09/2017 11:40a Main Office Lula Ray, J20.9 Acute bronchitis, P.A. unspecified J06.9 Acute upper respiratory infection, unspecified Office Visit 08/30/2017 4:20p Main Office Marquita Metz, J20.9 Acute bronchitis, PA unspecified M35.7 Hypermobility syndrome M35.9 Systemic involvement of connective tissue, unspecified I47.9 Paroxysmal tachycardia, unspecified D89.40 Mast cell activation, unspecified M25.512 Pain in left shoulder Office Visit 05/11/2017 3:55p Main Office Marquita Metz, J30.9 Allergic rhinitis, PA unspecified R73.01 Impaired fasting glucose M35.7 Hypermobility syndrome F33.9 Major depressive disorder, recurrent, unspecified J02.9 Acute pharyngitis, unspecified Office Visit 03/07/2017 4:15p Main Office Marquita Metz PA M25.512 Pain in left shoulder M35.7 Hypermobility syndrome M35.9 Systemic involvement of connective tissue, unspecified F33.9 Major depressive disorder, recurrent, unspecified G47.00 Insomnia, unspecified Office Visit 02/07/2017 10:05a Main Office Marquita Metz, M35.9 Systemic involvement PA of connective tissue, unspecified J01.90 Acute sinusitis, unspecified F33.9 Major depressive disorder, recurrent, unspecified G47.00 Insomnia, unspecified G47.30 Sleep apnea, unspecified M25.512 Pain in left shoulder Office Visit 01/17/2017 4:10p Main Office Marquita Metz PA R11.0 Nausea G47.00 Insomnia, unspecified M35.9 Systemic involvement of connective tissue, unspecified N91.2 Amenorrhea, unspecified Office Visit 11/01/2016 11:05a Main Office Marquita Metz, M35.9 Systemic involvement PA of connective tissue, unspecified M35.7 Hypermobility syndrome Office Visit 10/26/2016 2:40p Main Office Marquita Metz, B07.9 Viral wart , PA unspecified G47.00 Insomnia, unspecified M35.7 Hypermobility syndrome Office Visit 09/20/2016 2:55p Main Office Marquita Metz, PA Z00.01 Encounter for general adult medical exam w abnormal findings G47.00 Insomnia, unspecified M35.7 Hypermobility syndrome B07.9 Viral wart, unspecified Office Visit 08/30/2016 4:50p Main Office Marquita Metz, G47.00 Insomnia, PA unspecified M35.7 Hypermobility syndrome M25.50 Pain in unspecified joint J30.9 Allergic rhinitis, unspecified M25.511 Pain in right shoulder Plan of Treatment Future Appointment(s):02/08/2019 4:00 pm - [id number] - Marquita Metz PAJ02.9 Acute pharyngitis, unspecifiedComments:Rapid strep negative, culture sent out. Recommended warm salt water gargles, rest, fluids. Recheck if sx not improving.R53.83 Other fatigueComments:Has appt w sleep clinic to r/o narcolepsy (pt has +FHx). Glucose 102 today.M35.7 Hypermobility syndromeComments:Dx w hypermobility spectrum disorder by Dr. Jayjay Brantley. Additional dx of hEDS was also being considered. Patient has associated chronic pain and subluxations. Currently on meds per pain clinic. Pt to f/u w traffic operations engineer and EDS specialists as directed.Z13.1 Encounter for screening for diabetes mellitus
--- NOTE | 2019-02-15 23:26 | ED ---
Back Pain - HPI Summary HPI Summary: Pt is a 28 y/o female who presents to the ED c/o back pain. Starting 5 months ago pt has had low back pain that intermittently radiates to her lower abdomen. Pt states the pain is constant and has been worsening over the past 3 weeks. Her current pain is an 8/10 in severity. She went to an ER two months ago for the pain and was diagnosed with a left hemorrhagic ovarian cyst, which was thought to be the cause of the pain. Pt has an appointment with gynecology next month. She also has Miguel-Danlos Syndrome and recently saw her orthopedic surgeon who ruled out herniated disc. Pt also c/o bloating and pain with intercourse, but denies any dysuria, hematuria, abnormal vaginal discharge, or vaginal bleeding. Pt notes that she never bleeds because she has the Mirena IUD. PSHx hip surgery. - History of Current Complaint Chief Complaint: EDBackInjuryPain Stated Complaint: BACK PAIN PER PT Time Seen by Provider: 02/15/19 23:18 Hx Obtained From: Patient Onset/Duration: Gradual Onset, Lasting Weeks - 5 months ago, Worse Since Timing: Constant Back Pain Location: Is Discrete @ - low back radiates to low abdomen Severity Currently: Severe Pain Intensity: 8 Pain Scale Used: 0-10 Numeric Aggravating Symptom(s): Other - intercourse Alleviating Symptom(s): Nothing Associated Signs And Symptoms: Positive: Abdominal Pain - Allergies/Home Medications Allergies/Adverse Reactions: Allergies Allergy/AdvReac Type Severity Reaction Status Date / Time amoxicillin Allergy Hives Verified 02/15/19 21:30 Penicillins Allergy Hives Verified 02/15/19 21:30 sulfamethoxazole Allergy Hives Verified 02/15/19 21:30 [From Bactrim] trimethoprim [From Bactrim] Allergy Hives Verified 02/15/19 21:30 PMH/Surg Hx/FS Hx/Imm Hx Endocrine/Hematology History: Denies: Hx Diabetes Cardiovascular History: Denies: Hx Hypertension, Hx Pacemaker/ICD Respiratory History: Reports: Hx Sleep Apnea GI History: Reports: Hx Gastroesophageal Reflux Disease, Hx Ulcer History: Reports: Other Problems/Disorders - ovarian cysts Denies: Hx Renal Disease Musculoskeletal History: Reports: Hx Back Problems, Hx Orthopedic Injury, Other Musculoskeletal History - EDS, connective tissue disorder, hypermobility; Bilateral Shoulder Pain Sensory History: Reports: Hx Contacts or Glasses Denies: Hx Hearing Aid Opthamlomology History: Reports: Hx Contacts or Glasses Neurological History: Reports: Hx Headaches, Other Neuro Impairments/Disorders - dizziness Psychiatric History: Denies: Hx Panic Disorder - Surgical History Surgery Procedure, Year, and Place: REMOVED CYST ON NECK 7TH GRADE. LAPROSCOPIC LEFT HIP SURGERY 2015. WISDOM TEETH 2017 Infectious Disease History: No Infectious Disease History: Denies: Traveled Outside the [place] in Last 30 Days - Family History Known Family History: Negative: Respiratory Disease, Seizure Disorder - Social History Alcohol Use: Occasionally Alcohol Amount: 4 drinks per month Hx Substance Use: No Substance Use Type: Reports: None Hx Tobacco Use: No Smoking Status (MU): Never Smoked Tobacco Review of Systems Positive: Abdominal Pain - radiates to lower abdomen Positive: pain - with intercourse. Negative: dysuria, discharge - abnormal vaginal, hematuria, other - vaginal bleeding Positive: Myalgia - low back All Other Systems Reviewed And Are Negative: Yes Physical Exam - Summary Physical Exam Summary: Appearance: well appearing, no pain distress Skin: warm, dry, reflects adequate perfusion Head/face: normal Eyes: EOMI, APPLE ENT: mucous membranes moist Neck: supple, non-tender Respiratory: CTA, breath sounds present Cardiovascular: RRR, pulses symmetrical Abdomen: non-tender, soft Bowel Sounds: present Musculoskeletal: strength/ROM intact, sacral area tenderness Neuro: normal, sensory motor intact, A&Ox3 Triage Information Reviewed: Yes Vital Signs On Initial Exam: Initial Vitals Temp Pulse Resp BP Pulse Ox 97.5 F 76 16 116/71 100 02/15/19 21:27 02/15/19 21:27 02/15/19 21:27 02/15/19 21:27 02/15/19 21:27 Vital Signs Reviewed: Yes Diagnostics - Vital Signs Vital Signs Temp Pulse Resp BP Pulse Ox 02/15/19 23:18 74 93 02/15/19 23:17 74 100/65 100 02/15/19 21:27 97.5 F 76 16 116/71 100 - Laboratory Lab Statement: Any lab studies that have been ordered have been reviewed, and results considered in the medical decision making process. - Ultrasound No standard instances Ultrasound Interpretation Completed By: Radiologist Summary of Ultrasound Findings: Pelvis US: 1. Bilateral ovarian cysts. 2. Intrauterine device in place. ED physician reviewed radiology report. Re-Evaluation - Re-Evaluation First Eval Re-Evaluation Time: 00:30 Change: Improved Comment: Pt feels better. Back Pain Course/Dx - Course Course Of Treatment: Nurse's notes reviewed. Patient with chronic, recurring sacral area discomfort with a history of EDS. She sees rheumatology and chiropractic for upper back pain and joint pains elsewhere. She previously had ovarian cysts exacerbating this pain. Today her urine is negative, abdomen is soft and benign and transvaginal ultrasound shows no acute ovarian cyst. She is treated with tramadol and will follow-up with chiropractic/rheumatology in her primary care physician. - Diagnoses Differential Diagnosis/HQI/PQRI: Positive: Renal Colic, Strain, Sprain, Other - Pelvic infection, ovarian cysts/torsion, fibroids Provider Diagnoses: Sacroiliitis, Miguel-Danlos syndrome Discharge - Sign-Out/Discharge Documenting (check all that apply): Patient Departure - Discharge Patient Received Moderate/Deep Sedation with Procedure: No - Discharge Plan Condition: Improved Disposition: HOME Patient Education Materials: Sacroiliitis (ED), Lower Back Exercises (ED) Referrals: Kendall Lowery MD [Primary Care Provider] - Bakari Cordova MD [Medical Doctor] - Additional Instructions: Call to follow-up with your gym attendant and also with your chiropractor. Stay active and continue your prescribed medications. Try the tramadol for pain above baseline. Stay well-hydrated. Return if worse, fever, new symptoms or other concerns. - Billing Disposition and Condition Condition: IMPROVED Disposition: Home - Attestation Statements Document Initiated by Mike: Yes Documenting Scribe: Anel Fontanez Provider For Whom Mike is Documenting (Include Credential): Herrera Delacruz MD Scribe Attestation: Anel Rudolph scribed for Herrera Delacruz MD on 02/16/19 at 0147. Scribe Documentation Reviewed: Yes Provider Attestation: The documentation as recorded by the Anel malik accurately reflects the service I personally performed and the decisions made by me, Herrera Delacruz MD Status of Scribe Document: Viewed
[2019-02-16 00:27] LABS: Urine Appearance Clear; Urine Bilirubin Negative (Negative); Urine Blood Negative (Negative); Urine Color Yellow; Urine Glucose Negative (Negative); Urine Ketones Negative (Negative); Urine Nitrite Negative (Negative); Urine Protein Negative (Negative); Urine Specific Gravity 1.013 (1.010-1.030); Urine Urobilinogen Negative (Negative)
[2019-02-16 01:08] VITALS: BP 104/51
[2019-02-20 10:42] LABS: Neisseria gonorrhoeae (GC) RNA Negative (Negative)
== END 2019-02-16 01:00 | disposition home or self-care (01) ==
LOC: ED 21:26
DX: M46.1 Sacroiliitis, not elsewhere classified (principal); Q79.6 Ehlers-Danlos syndromes; R10.9 Unspecified abdominal pain; M54.9 Dorsalgia, unspecified; Z88.0 Allergy status to penicillin; Z88.2 Allergy status to sulfonamides; K21.9 Gastro-esophageal reflux disease without esophagitis; M54.5 Low back pain
CPT/HCPCS: 76856; 81003; 87491; 87591; 99283

== ENCOUNTER 2020-07-15 09:14 | Inpatient (IN) ==
[2020-07-15] MEDS ORDERED: Lactated Ringers 1000 ml BAG 1,000 ML IV ONE (10:40)
[2020-07-15 10:58] LABS: ABS Basophils 0.1 10^3/ul (0-0.2); ABS Eosinophils 0.2 10^3/ul (0-0.6); ABS Lymphocytes 1.6 10^3/ul (1.0-4.8); ABS Monocytes 0.8 10^3/ul (0-0.8); ABS Neutrophils 6.9 10^3/ul (1.5-7.7); Eosinophil % 1.8 %; Hematocrit 33 % (35-47); Hemoglobin 11.5 g/dL (12.0-16.0); Lymphocyte % 16.5 %; Mean Corpuscular HGB Conc 35 g/dL (31-36); Mean Corpuscular Hemoglobin 31 pg (27-31); Mean Corpuscular Volume 88 fL (80-97); Mean Platelet Volume 12.1 fL (7.4-10.4); Platelet Count 130 10^3/uL (150-450); Red Blood Count 3.75 10^6 /uL (3.70-4.87); Red Cell Distribution Width 15 % (10-15); White Blood Count 9.5 10^3/uL (3.5-10.8)
[2020-07-15 12:36] LABS: Urine Benzodiazepine Screen None Detected (None Detect); Urine Cannabinoids Screen None Detected (None Detect); Urine Opiates Screen None Detected (None Detect)
[2020-07-15] MEDS ORDERED: Morphine 10 MG/ML VIAL (1 ml) IV ONE (21:20)
[2020-07-15] MEDS ORDERED: Promethazine INJ(RESTRICTED) 25 MG/ML 1 ml VIAL IV ONE (21:20)
[2020-07-16] MEDS ORDERED: Oxytocin in LR 20 UNITS/1,000 ML BAG IVPB ONE (09:51)
[2020-07-16] MEDS: Lactated Ringers 1000 ml BAG 1,000 ML IV SCH (10:15)
[2020-07-16] MEDS ORDERED: Ondansetron 4 mg VIAL 2 MG/ML 2 ml VIAL IV ONE ×2 (10:23→18:23)
[2020-07-16] MEDS ORDERED: Oxytocin in LR 20 UNITS/1,000 ML BAG IVPB SCH (10:30)
[2020-07-16] MEDS ORDERED: Ondansetron 4 mg VIAL 2 MG/ML 2 ml VIAL ONE (10:39)
[2020-07-16] MEDS ORDERED: Dinoprostone 10 MG VAG.SUPP VAGINAL ONE (22:00)
[2020-07-16] MEDS ORDERED: Morphine 10 MG/ML VIAL (1 ml) IM ONE (22:47)
[2020-07-16] MEDS ORDERED: Promethazine INJ(RESTRICTED) 25 MG/ML 1 ml VIAL IM ONE (22:48)
[2020-07-17] MEDS ORDERED: Polyethylene Glycol 3350 17 GM PACKET PO PRN ×2 (12:40→15:12)
[2020-07-17] MEDS ORDERED: Oxytocin in LR 20 UNITS/1,000 ML BAG IVPB SCH (13:00)
[2020-07-17] MEDS: Lactated Ringers 1000 ml BAG 1,000 ML IV SCH (13:02)
[2020-07-17 13:52] LABS: ABS Basophils 0.1 10^3/ul (0-0.2); ABS Eosinophils 0.2 10^3/ul (0-0.6); ABS Monocytes 0.9 10^3/ul (0-0.8); ABS Neutrophils 8.1 10^3/ul (1.5-7.7); Eosinophil % 1.8 %; Hematocrit 35 % (35-47); Hemoglobin 11.7 g/dL (12.0-16.0); Lymphocyte % 9.7 %; Mean Corpuscular HGB Conc 34 g/dL (31-36); Mean Corpuscular Hemoglobin 30 pg (27-31); Mean Corpuscular Volume 88 fL (80-97); Nucleated Red Blood Cells % 0.1; Platelet Count 121 10^3/uL (150-450); Red Blood Count 3.94 10^6 /uL (3.70-4.87); Red Cell Distribution Width 15 % (10-15); White Blood Count 10.2 10^3/uL (3.5-10.8)
== END 2020-07-17 21:00 | disposition home or self-care (01) | DRG 951 ==
LOC: MCHOBOUT 09:14 → MCHOB 10:28
PROVIDERS: ADMIT Advanced Practice Midwife; ATTEND Advanced Practice Midwife

== ENCOUNTER 2020-07-24 14:12 | Inpatient (IN) ==
[2020-07-24] MEDS ORDERED: Lactated Ringers 1000 ml BAG 1,000 ML IV ONE (14:44)
[2020-07-24 15:32] LABS: Urine Benzodiazepine Screen None Detected (None Detect); Urine Cannabinoids Screen None Detected (None Detect); Urine Opiates Screen None Detected (None Detect)
[2020-07-25] MEDS ORDERED: Lidocaine 2.5%/Prilocain 2.5% 5 GM TUBE ONE (09:41)
[2020-07-25 10:17] LABS: Hematocrit 35 % (35-47); Hemoglobin 11.5 g/dL (12.0-16.0); Mean Corpuscular HGB Conc 33 g/dL (31-36); Mean Corpuscular Hemoglobin 29 pg (27-31); Mean Corpuscular Volume 87 fL (80-97); Mean Platelet Volume 11.5 fL (7.4-10.4); Platelet Count 140 10^3/uL (150-450); Red Blood Count 3.98 10^6 /uL (3.70-4.87); Red Cell Distribution Width 15 % (10-15); White Blood Count 11.3 10^3/uL (3.5-10.8)
[2020-07-25 10:30] LABS: ABS Eosinophils 0.2 10^3/ul (0-0.6); ABS Lymphocytes 1.4 10^3/ul (1.0-4.8); ABS Monocytes 0.7 10^3/ul (0-0.8); ABS Neutrophils 8.9 10^3/ul (1.5-7.7); Eosinophil % 1.7 %; Lymphocyte % 12.8 %; Nucleated Red Blood Cells % 0.1
[2020-07-25] MEDS ORDERED: Oxytocin in LR 20 UNITS/1,000 ML BAG IVPB ONE (11:19)
[2020-07-25] MEDS ORDERED: Oxytocin in LR 20 UNITS/1,000 ML BAG IVPB SCH ×2 (12:00→23:45)
[2020-07-25] MEDS ORDERED: OBEPIDURAL 250 ML EPIDURAL ONE (17:07)
[2020-07-25] MEDS ORDERED: Lactated Ringers 1000 ml BAG 1,000 ML IV SCH ×2 (18:00→23:45)
[2020-07-25] MEDS ORDERED: Sodium Citrate/Citric Acid LIQ 15 ML UDC PO PRN (18:36)
[2020-07-25] MEDS ORDERED: Phenylephrine 40 mcg/mL 10mL (400mcg) SYRINGE IV PUSH PRN (18:36)
[2020-07-25] MEDS ORDERED: OBEPIDURAL 250 ML EPIDURAL SCH (19:00)
[2020-07-25] MEDS ORDERED: Bupivacaine 0.25% SDV PF 10 ML VIAL INJ ONE (20:55)
[2020-07-25] MEDS ORDERED: Dibucaine 1% OINT 28.35 GM TUBE PR PRN (23:33)
[2020-07-25] MEDS ORDERED: Witch Hazel PAD JAR TOPICAL PRN (23:33)
[2020-07-25] MEDS ORDERED: Glycerin ADULT 2.4 gm SUPP PR PRN (23:33)
[2020-07-26 10:13] LABS: ABS Eosinophils 0.1 10^3/ul (0-0.6); ABS Lymphocytes 1.5 10^3/ul (1.0-4.8); ABS Monocytes 0.8 10^3/ul (0-0.8); ABS Neutrophils 9.5 10^3/ul (1.5-7.7); Eosinophil % 0.7 %; Hematocrit 30 % (35-47); Hemoglobin 9.8 g/dL (12.0-16.0); Lymphocyte % 12.6 %; Mean Corpuscular HGB Conc 33 g/dL (31-36); Mean Corpuscular Hemoglobin 29 pg (27-31); Mean Corpuscular Volume 88 fL (80-97); Mean Platelet Volume 11.2 fL (7.4-10.4); Platelet Count 112 10^3/uL (150-450); Red Blood Count 3.41 10^6 /uL (3.70-4.87); Red Cell Distribution Width 15 % (10-15)
[2020-07-27 07:58] VITALS: BP 106/56
== END 2020-07-27 20:49 | disposition home or self-care (01) ==
LOC: MCHOBOUT 14:12 → MCHOB 14:43
PROVIDERS: ADMIT Midwife; ATTEND Midwife